=== PATIENT | female | born 1995 | race Caucasian/White ===

== ENCOUNTER 2021-09-21 19:29 | Emergency (ER) | payer SELFPAY ==
[2021-09-21 19:42] VITALS: BP 126/77; PULSE 73; RESP 16; TEMP 36.8; O2SAT 99
--- NOTE | 2021-09-21 19:50 | ED.FEMALEGU ---
HPI - Female Genitourinary General Chief complaint: Urogenital-Female Stated complaint: uti Time Seen by Provider: 09/21/21 19:51 Source: patient and RN notes reviewed Mode of arrival: ambulatory Limitations: no limitations History of Present Illness HPI Narrative: Patient presents today complaining of dysuria, frequency, lower abdominal pressure, low back pain. Symptoms have been present for 1 hour. Denies hematuria. History of frequent UTIs and short urethra . Patient took a dose of Azo 1 hour prior to arrival. No recent antibiotic use. MD elicited complaint: UTI Related Data Allergies Allergy/AdvReac Type Severity Reaction Status Date / Time Sulfa (Sulfonamide Allergy Rash Verified 09/21/21 19:51 Antibiotics) Review of Systems Review of Systems: CONSTITUTIONAL: Denies body aches, fever, chills, or sweats. EYES: Denies visual changes, redness, or discharge. ENT: Denies rhinorrhea, congestion, sore throat, or otalgia. CARDIOVASCULAR: Denies chest pain, palpitations, or edema. RESPIRATORY: Denies cough or dyspnea. GASTROINTESTINAL: Denies abdominal pain, nausea, vomiting, or diarrhea. GENITOURINARY: + Dysuria, frequency, lower abdominal pressure SKIN: Denies rash, itching, or wounds. MUSCULOSKELETAL: Denies joint pain, or myalgia.+ Back pain NEUROLOGIC: Denies headache, numbness, tingling, or weakness. PSYCH: Denies depression or anxiety. PMFSH Comments At time of signature, I have reviewed and agree with nursing past medical, surgical, social and family history unless otherwise noted. Please see nursing chart for further information. There is no relevant family history pertinent to the presenting complaint Exam Narrative: GENERAL: Well-appearing, well-nourished, and in no acute distress. HEAD: Normocephalic, atraumatic. EYES: EOMI. No redness or drainage. Conjunctivae normal. ENT: Mucous membranes pink and moist. NECK: Normal AROM. CHEST: No respiratory distress. Clear to auscultation. HEART: Regular rate and rhythm. No murmur appreciated. Normal peripheral pulses. ABDOMEN: Soft, nondistended, normal active bowel sounds. + Suprapubic tenderness. MUSCULOSKELETAL: No bony tenderness. EXTREMITIES: Normal range of motion. No edema. SKIN: Warm, dry, no rash. Capillary refill normal. Normal skin turgor. NEURO: No focal deficits. Alert and oriented x3. Gait steady. PSYCH: Normal affect. No signs of depression or anxiety. Course Vital Signs Vital signs: Vital Signs Temperature 98.2 F 09/21/21 19:42 Pulse Rate 73 09/21/21 19:42 Respiratory Rate 16 09/21/21 19:42 Blood Pressure 126/77 09/21/21 19:42 Pulse Oximetry 99 09/21/21 19:42 Temperature 98.2 F 09/21/21 19:42 Pulse Rate 73 09/21/21 19:42 Respiratory Rate 16 09/21/21 19:42 Blood Pressure 126/77 09/21/21 19:42 Pulse Oximetry 99 09/21/21 19:42 Reviewed. Pt has been instructed to follow up with her PCP regarding her elevated blood pressure today. MDM - Female Genitourinary Differential Diagnosis Differential diagnosis: Likely urinary tract infection, vaginitis, cystitis and other Lab Data Attestation: I reviewed the patient's lab results. Labs: Urine Glucose Trace Reference Range: Negative Urine Bilirubin 1+ Reference Range: Negative Urine Ketone Negative Reference Range: Negative Urine Specific [place] 1.025 Reference Range:1.001-1.035 Urine Blood Trace Reference Range: Negative * * Urine pH 5.0 Reference Range: 5.0-9.0 Urine Protein
== END 2021-09-21 20:00 | disposition home or self-care (01) ==
PROVIDERS: Emergency Provider Nurse Practitioner
DX: N39.0 Urinary tract infection, site not specified (principal)
CPT/HCPCS: 81003; 87077; 87086; 87088; 87186; 99203; G0463

== ENCOUNTER 2022-09-28 08:55 | Inpatient (IN) | payer OTHER, SELFPAY ==
[2022-09-28] VITALS (7 sets, daily range): BP systolic 103–125; BP diastolic 54–98; PULSE 64–73; RESP 12–18; TEMP 36.4–36.6; O2SAT 98–100
--- NOTE | ~2022-09-28 | US_ITS ---
Pelvic ultrasound. Clinical History: Second trimester , pelvic pain Technique: Realtime transabdominal and transvaginal scanning of the pelvis was performed. Color flow Doppler and Doppler spectral analysis were performed. Findings: The uterus is anteverted, and contains an intrauterine gestation. Placenta located towards the fundus. heart rate is 151 bpm. Neither ovary seen. No adnexal mass seen. There is no evidence of free fluid in the cul de sac. Impression: Live intrauterine gestation. heart rate is 151 bpm. Reviewed, dictated and finalized at location M. BUSINESS PROFESSOR Impression: Live intrauterine gestation. heart rate is 151 bpm.
--- NOTE | 2022-09-28 09:39 | ED.GENADULT ---
HPI - General Adult General Chief complaint: Abdominal Pain Stated complaint: ABD PAIN,N/V/D Time Seen by Provider: 09/28/22 09:10 History of Present Illness HPI narrative: This is a 27-year-old at 24 weeks via in vitro fertilization presenting ED with sudden onset of abdominal pain, nausea vomiting and diarrhea. Patient describes her pain as a diffuse abdominal pain that is burning, nonradiating 10 out 10 and constant the. It is constant and getting worse. She says she has felt pain like this before when she has had bad diarrhea. There are no exacerbating or alleviating factors. Patient had multiple episodes of nausea and vomiting this morning, while vomiting she did have an episode of IR diarrhea where she said she passed a reddish clot. She is relatively sure this was from her rectum and not her vagina. Patient denies chest pain, difficulty breathing, urinary symptoms, vaginal bleeding irritation. She has felt the baby move. Her OBGYN is Teresita Larkin. Her current is complicated by in vitro fertilization and a subchorionic hemorrhage in the 1st trimester. Related Data Allergies Allergy/AdvReac Type Severity Reaction Status Date / Time medroxyprogesterone Allergy Rash Verified 09/28/22 09:40 [From Provera] Sulfa (Sulfonamide Allergy Rash Verified 09/28/22 09:40 Antibiotics) Review of Systems Review of Systems: CONSTITUTIONAL: Denies night sweats. EYES: No eye pain ENT: Denies rhinorrhea CARDIOVASCULAR: Denies palpitations RESPIRATORY: Denies hemoptysis GASTROINTESTINAL: Denies hematemesis GENITOURINARY: Denies hematuria. SKIN: Denies rash MUSCULOSKELETAL: Denies myalgia. NEUROLOGIC: Denies weakness. PSYCHIATRIC: Denies delusions [facility] Past Medical History Medical History Healthy female Social History Social History Social History: Denies alcohol or tobacco, uses marijuana occasionally Exam Narrative: APPEARANCE: No apparent distress. Head: atraumatic. EYES: EOMI, NOSE: Atraumatic NECK: Trachea midline RESPIRATORY: No increased rate of breathing CARDIOVASCULAR: RRR, ABDOMINAL: gravid uterus extending above the umbilicus, tenderness to palpation over the uterus, no guarding or rebound around the rest of the abdomen. Rectal exam revealed no external hemorrhoids or donald blood in the rectal vault. External exam of the vaginal canal the right reveal any bleeding. MUSCULOSKELETAl: No obvious deformities NEURO: Alert. Moving 4/4 extremities SKIN:: Warm, dry. Normal color PSYCHIATRIC: Normal affect Pelvic exam revealed mucopurulent discharge in the vaginal vault. Swabs were taken. There is cervical motion tenderness. Course Vital Signs Vital signs: Vital Signs Temperature 98 F 09/28/22 09:09 Pulse Rate 73 09/28/22 09:09 Respiratory Rate 13 09/28/22 09:09 Blood Pressure 118/98 H 09/28/22 09:09 Pulse Oximetry 100 09/28/22 09:09 Temperature 98 F 09/28/22 09:09 Pulse Rate 67 09/28/22 10:56 Respiratory Rate 15 09/28/22 10:56 Blood Pressure 103/60 09/28/22 10:56 Pulse Oximetry 99 09/28/22 10:56 Medical Decision Making MDM Narrative Medical decision making narrative: This is a 27-year-old woman presenting to ED with abdominal pain, nausea vomiting diarrhea. Differential includes viral syndrome, gastroenteritis but also includes complications of including infection/bleeding. lab work including viral swabs, urinalysis have been obtained. Point of care Ob ultrasound revealed a normal heart rate with no obvious abnormalities. A transvaginal ultrasound has been ordered to evaluate for intrauterine pathology. Patient has been given Reglan Tylenol fluids for symptom control. Lab work was significant for a white blood cell count of 19.8. Urinalysis did not indicate infection. The rest of her lab work
--- NOTE | 2022-09-28 09:39 | PC.NURSE ---
BS 128
[2022-09-28] MEDS: SODIUM CHLORIDE 0.9% IV 1,000 ML 999 ML IV CONT (09:45)
[2022-09-28] MEDS: METOCLOPRAMIDE HCL INJ 10 MG/2 ML VIAL IV PUSH (09:45)
[2022-09-28 09:49] LABS: Glucose Point of Care 123 mg/dl (65-105)
[2022-09-28 09:51] LABS: Basophils Absolute Auto 0.1 K/mm3 (0.0-0.1); Basophils Percent Auto 0.3 % (0.2-1.2); Eosinophils Percent Auto 0.1 % (0-4.4); Hemoglobin 12.8 g/dL (12.0-15.0); Immature Granulocyte Absolute 0.11 K/mm3 (0.00-0.031); Immature Granulocyte Percent A 0.6 % (0-0.5); Lymphocytes Absolute Auto 0.88 K/mm3 (0.9-3.2); Lymphocytes Percent Auto 4.4 % (18.3-44.2); Mean Corpuscular HGB Conc 34.6 g/dl (32-36); Mean Corpuscular Hemoglobin 32.1 pg (26-34); Mean Corpuscular Volume 92.7 fl (80-100); Mean Platelet Volume 9.7 fl (7.4-10.4); Neutrophils Absolute Auto 17.8 K/mm3 (1.3-6.7); Neutrophils Percent Auto 89.6 % (45.5-73.1); Platelet Count Result 240 k/mm3 (150-375); Red Blood Count 3.99 M/mm3 (4.2-5.4); Red Cell Distribution Width 13.3 % (11.5-14.5); White Blood Count 19.8 K/mm3 (4.5-10.0)
[2022-09-28 09:52] LABS: Add Urine Microscopic? YES; Appearance Urine Slightly Cloudy (Clear); Bilirubin Urine Negative (Negative); Blood Urine Negative (Negative); Color Urine Yellow (Yellow); Glucose Urine UA Negative (Negative); Ketones Urine Trace mg/dL (Negative); Leukocyte Esterase Ur Negative LEU/UL (Negative); Nitrate Urine Negative (Negative); Protein Urine Trace mg/dL (Negative); Specific Grav Ur 1.025 (1.001-1.035); Urobilinogen Urine 0.2 mg/dL (<2.0)
--- NOTE | 2022-09-28 09:58 | PC.NURSE ---
Pt to U/S via stretcher at this time.
[2022-09-28 10:00] LABS: Bacteria Urine Trace /hpf; Mucus Urine Heavy /lpf; RBC Urine 0-2 /hpf (0-2); Squamous Epithelial Cell Urine Occasional /hpf (Few)
[2022-09-28 10:01] LABS: Alanine Aminotransferase 20 U/L (6-35); Albumin Level 4.2 g/dL (3.5-5.1); Alkaline Phosphatase 78 U/L (38-126); Anion Gap 12 mmol/L (8-16); Aspartate Amino Transferase 22 U/L (14-36); Bilirubin,Total 0.4 mg/dL (0.2-1.3); Blood Urea Nitrogen 10 mg/dL (7-17); Carbon Dioxide 19 mmol/L (22-30); Chloride 107 mmol/L (98-107); Estimated CRCL calculation 138 ml/min; Estimated Glomerular Filt Rate > 60; Glucose 118 mg/dL (65-110); Lipase 138 U/L (23-300); Magnesium 1.7 mg/dL (1.6-2.3); Potassium 3.9 mmol/L (3.4-5.0); Sodium 138 mmol/L (137-145)
[2022-09-28 10:05] LABS: Partial Thromboplastin Time 24.7 SECONDS (22.3-36.8); Prothrombin Time 12.9 Seconds (11.1-14.7)
[2022-09-28 10:36] LABS: Influenza A QL RT-PCR Negative (Negative); Influenza B QL RT-PCR Negative (Negative); RSV RNA, RT-PCR Negative (Negative); SARS-CoV-2 RNA PCR Negative
[2022-09-28] MEDS: HYDROmorphone HCL INJ (*CRX) 1 MG/ML SYR 0.5 MG IV PUSH (13:45)
--- NOTE | 2022-09-28 16:05 | ADMGEN ---
This patient, Dyan Do, was admitted to [facility] Surg Room 300-01. Patient/family oriented to hospital policies and general routines including ID bracelet, bed and alarms, visiting hours, pain management, procedures, bathroom and other care routines, personal items, smoking policy, room service/diet, and visiting hours. Information on how to activate the Rapid Response Team has been discussed. Patient/Family are encouraged to report perceived risks to care and to ask questions if they do not understand what they are told or what they should do.
[2022-09-28] MEDS: ONDANSETRON INJ 4 MG/2 ML VIAL 8 MG IV PUSH (17:52)
[2022-09-28] MEDS: HYDROmorphone HCL INJ (*CRX) 1 MG/ML SYR IV PUSH (17:53)
[2022-09-28] MEDS: DEXTROSE 5%/LACTATED RINGERS 1,000 ML 125 ML IV CONT (17:53)
--- NOTE | 2022-09-28 18:55 | PM.IMHP ---
H&P: HPI History of Present Illness Date/Time: 09/28/22 18:55 Chief Complaint: Rectal bleeding Narrative: this patient is a 27-year-old female 1 at 24 weeks gestation proximally with bloody stools and donald red blood per rectum. She has some epigastric pain. She reports good movement. There is no vaginal bleeding. She has no watery vaginal discharge. There is no lower extremity edema. Review of Systems Review of Systems: All systems reviewed & are unremarkable except as noted in HPI and below Constitutional: Constitutional: Denies chills, Denies fatigue, Denies fever(s) and Denies weakness Eyes: Eyes: Denies blurry vision, Denies change in vision, Denies loss of peripheral vision, Denies loss of vision, Denies other visual disturbances and Denies eye pain ENT: Denies vertigo, Denies dizziness, Denies hearing loss, Denies mouth pain, Denies nasal obstruction, Denies neck mass and Denies neck pain Cardiovascular: Cardiovascular: Denies chest pain, Denies diaphoresis, Denies syncope, Denies leg edema and Denies dyspnea Respiratory: Respiratory: Denies chest congestion, Denies cough, Denies hemoptysis, Denies dyspnea and Denies wheezing Gastrointestinal: Gastrointestinal: Denies abdominal pain, Denies constipation, Denies diarrhea, Denies nausea and Denies vomiting Genitourinary: Genitourinary: Denies hematuria, Denies change in libido, Denies nocturia, Denies genital lesions, Denies flank pain and Denies urinary urgency Musculoskeletal: Musculoskeletal: Denies abnormal gait, Denies back pain, Denies myalgias, Denies arthralgias, Denies joint swelling, Denies muscle weakness and Denies neck pain Integumentary/Breasts: Skin/Breast: Denies swelling, Denies breast pain, Denies breast mass, Denies dry skin, Denies nipple discharge, Denies unusual bruising and Denies jaundice Neurologic: Denies Neuro-related abnormal movements, Denies Abnormal speech present, Denies abnormal gait, Denies behavioral changes, Denies confusion, Denies vertigo, Denies dizziness, Denies syncope, Denies loss of vision, Denies memory loss, Denies convulsions and Denies weakness Psychiatric: Psychiatric: Denies abnormal sleep pattern, Denies behavioral changes, Denies change in libido, Denies confusion, Denies depression, Denies anhedonia and Denies memory loss Endocrine: Endocrine: Reports no additional endocrine complaints, Denies change in libido and Denies fatigue Hematologic/Lymphatic: Hematologic/Lymphatic: Reports no additional hematologic/lymphatic complaints Allergic/Immunologic: Allergic/Immunologic: Reports no additional allergic/immunologic complaints and Denies wheezing PMFSH Past Medical History Medical History Healthy female Social History Social History Social History: Denies alcohol or tobacco, uses marijuana occasionally Smoking status: Former smoker Alcohol intake: former Substance use type: marijuana Lack of Transportation: No Lack of Food: Never True Current Housing: I Have Housing Concerned About Future Housing: No Difficulty Paying Gas/Electric Bills: No Difficulty Paying for Meds: No Currently Unemployed: No Education: Bachelor's Degree Difficulty w/ Childcare or Family Care: No Spiritual care concerns: No Meds Home Medications and Allergies Home Medications Medication Instructions Recorded Confirmed Type nitrofurantoin 100 mg PO Q12H 7 days #14 caps 09/21/21 Rx monohydrate/macrocrystals 100 mg capsule (Macrobid) Allergies Allergy/AdvReac Type Severity Reaction Status Date / Time medroxyprogesterone Allergy Rash Verified 09/28/22 09:40 [From Provera] Sulfa (Sulfonamide Allergy Rash Verified 09/28/22 09:40 Antibiotics) Vital Signs Vital Signs - 24 hr 09/28/22 09:09 09/28/22 10:56 09/28/22 12:48 Temperature 98 F Pulse Rate 73 6
[2022-09-28] MEDS: metroNIDAZOLE 500 MG/ISO 100ML 500 MG/100 ML BAG 100 MG IVPB (20:21)
[2022-09-28] MEDS: HYDROmorphone HCL INJ (*CRX) 1 MG/ML SYR 2 MG IV PUSH (21:12)
[2022-09-29] VITALS (9 sets, daily range): BP systolic 87–104; BP diastolic 48–58; PULSE 60–88; RESP 13–27; TEMP 36.1–36.8; O2SAT 95–100
[2022-09-29] MEDS: HYDROmorphone HCL INJ (*CRX) 1 MG/ML SYR 2 MG IV PUSH ×7 (04:16→23:04)
[2022-09-29] MEDS: DEXTROSE 5%/LACTATED RINGERS 1,000 ML 125 ML IV CONT ×2 (04:19→21:45)
[2022-09-29] MEDS: ONDANSETRON INJ 4 MG/2 ML VIAL 8 MG IV PUSH (11:45)
[2022-09-29] MEDS: metroNIDAZOLE 500 MG/ISO 100ML 500 MG/100 ML BAG 100 MG IVPB ×2 (11:49→20:48)
--- NOTE | 2022-09-29 13:01 | P.PNAN_ITS ---
Anes - Initial Pre Proc Eval Procedure: Operation Date: 09/29/22 14:15 Proposed Procedures p Flexible Sigmoidoscopy - Kavin Infante MD Date/Time: 09/29/22 13:01 Surgeon: Javier Resendez MD Pre Op Diagnosis: pid Patient Data Age: 27 Gender: F Height: 1.7 m Weight: 79.54 kg Last Vital Signs Temp 36.1 C L 09/29/22 06:00 Pulse 60 09/29/22 06:00 Resp 16 09/29/22 06:00 BP 99/50 L 09/29/22 06:00 Pulse Ox 98 09/29/22 06:00 O2 Del Method Room Air 09/29/22 08:40 Allergies Allergy/AdvReac Type Severity Reaction Status Date / Time medroxyprogesterone Allergy Rash Verified 09/28/22 19:21 [From Provera] Sulfa (Sulfonamide Allergy Rash Verified 09/28/22 19:21 Antibiotics) Home Medications Medication Instructions Recorded Confirmed Type No Home Medications 09/29/22 09/29/22 History Results Review: All pre-operative results and documents have been reviewed as part of the pre- operative evaluation. [facility]LY [facility] Past Medical History Medical History Healthy female Social History Social History Social History: Denies alcohol or tobacco, uses marijuana occasionally Smoking status: Former smoker Alcohol intake: former Substance use type: marijuana Lack of Transportation: No Lack of Food: Never True Current Housing: I Have Housing Concerned About Future Housing: No Difficulty Paying Gas/Electric Bills: No Difficulty Paying for Meds: No Currently Unemployed: No Education: Bachelor's Degree Difficulty w/ Childcare or Family Care: No Spiritual care concerns: No Anes - Eval Final PreProcedure Day of Procedure 09/29/22 13:01 Patient weight: overweight Heart: regular rate and rhythm Lungs: clear to auscultation Airway: Mallampati scale class II Neurological: alert and oriented Last oral intake: >/= 8 hours ASA classification: II Emergent: no Anesthetic plan: proceed Anesthesia type and monitoring: general GIVS and standard monitoring Other findings: patient - doppler before and after procedure Results Review: All pre-operative results and documents have been reviewed as part of the pre- operative evaluation. Informed Consent: The patient's anesthetic plan and its attendant risks and benefits were discussed with the patient/family/POA. Questions were solicited and answers provided to the satisfaction of the patient/family/POA.
--- NOTE | 2022-09-29 13:10 | WPDGICN ---
Assessment and Plan Assessment and plan (1) Rectal bleeding: Code(s): K62.5 - Hemorrhage of anus and rectum Status: Acute Assessment and Plan: Patient with bright red blood per rectum. Her hemoglobin is normal. She does have elevated white count. Suspect bleeding is from hemorrhoids. Other etiology cannot be excluded. Plan is for flexible sigmoidoscopy to determine if this is hemorrhoidal or colitis. I discussed preparation for procedure with solid waste engineer, Dr. Resendez. Plan is for a Fleet's enema prior to flex sig with no sedation. (2) Acute pelvic inflammatory disease (PID): Code(s): N73.0 - Acute parametritis and pelvic cellulitis Status: Acute Assessment and Plan: Patient with abdominal pain suspected to be PID. Currently followed by gynecology service. (3) conceived through in vitro fertilization: Code(s): O09.819 - Supervision of resulting from assisted reproductive technology, unspecified trimester Status: Acute Assessment and Plan: Patient is . Gynecology following. She appears (4) Leukocytosis: Code(s): D72.829 - Elevated white blood cell count, unspecified Status: Acute Assessment and Plan: Patient has elevated white count. Etiology unclear likely related to PID. GI Consult Note Consult date/time: 09/29/22 13:10 Reason for consult: Rectal bleeding HPI: Dyan Do is a 27 year old female I am asked to see at the request of Dr. Resendez for rectal bleeding. Patient currently is 24 weeks after in vitro fertilization. She did well until yesterday morning when she passed several small amounts of bright red blood per rectum. Patient also developed rather significant diffuse abdominal discomfort. She states she has had abdominal pain previously with poor bowel movements. After being seen in the emergency room was suspected possibly having PID. I have been consulted because of rectal bleeding. Patient denies prior episodes of bleeding. Review of Systems Review of Systems: Review of systems noncontributory. [facility]LY [facility] Past Medical History Medical History Healthy female Social History Social History Social History: Denies alcohol or tobacco, uses marijuana occasionally Smoking status: Former smoker Alcohol intake: former Substance use type: marijuana Lack of Transportation: No Lack of Food: Never True Current Housing: I Have Housing Concerned About Future Housing: No Difficulty Paying Gas/Electric Bills: No Difficulty Paying for Meds: No Currently Unemployed: No Education: Bachelor's Degree Difficulty w/ Childcare or Family Care: No Spiritual care concerns: No Meds Home Medications and Allergies Home Medications Medication Instructions Recorded Confirmed Type No Home Medications 09/29/22 09/29/22 History Allergies Allergy/AdvReac Type Severity Reaction Status Date / Time medroxyprogesterone Allergy Rash Verified 09/28/22 19:21 [From Provera] Sulfa (Sulfonamide Allergy Rash Verified 09/28/22 19:21 Antibiotics) Vital Signs Vital Signs - 24 hr 09/28/22 15:38 09/28/22 16:27 09/28/22 18:45 Temperature 97.6 F Pulse Rate 68 73 Respiratory Rate 15 12 Blood Pressure 106/63 125/71 Pulse Oximetry 99 98 Oxygen Delivery Room Air 09/28/22 22:00 09/28/22 20:00 09/28/22 22:38 Temperature 97.7 F Pulse Rate 67 Respiratory Rate 18 Blood Pressure 118/71 Pulse Oximetry 98 98 Oxygen Delivery Room Air Room Air 09/29/22 06:00 09/29/22 08:40 Temperature 96.9 F L Pulse Rate 60 Respiratory Rate 16 Blood Pressure 99/50 L Pulse Oximetry 98 Oxygen Delivery Room Air Exam Narrative: Physical exam reveals patient be alert. Vital signs stable. HEENT exam reveals no icterus. Lungs are cl
[2022-09-29] MEDS: LACTATED RINGERS 1,000 ML 150 ML IV CONT (13:54)
--- NOTE | 2022-09-29 14:45 | SUR.OPER ---
MD Infante speaking to at bedside. present.
[2022-09-29 16:03] LABS: Basophils Percent Auto 0.2 % (0.2-1.2); Eosinophils Absolute Auto 0.1 K/mm3 (0-0.3); Eosinophils Percent Auto 0.9 % (0-4.4); Hematocrit 34.9 % (37.0-47.0); Hemoglobin 11.5 g/dL (12.0-15.0); Immature Granulocyte Absolute 0.09 K/mm3 (0.00-0.031); Immature Granulocyte Percent A 0.7 % (0-0.5); Lymphocytes Absolute Auto 2.79 K/mm3 (0.9-3.2); Lymphocytes Percent Auto 22.6 % (18.3-44.2); Mean Corpuscular Hemoglobin 31.9 pg (26-34); Mean Corpuscular Volume 96.9 fl (80-100); Mean Platelet Volume 9.7 fl (7.4-10.4); Monocytes Absolute Auto 0.8 K/mm3 (0.1-0.6); Monocytes Percent Auto 6.2 % (2.6-8.5); Neutrophils Absolute Auto 8.6 K/mm3 (1.3-6.7); Neutrophils Percent Auto 69.4 % (45.5-73.1); Platelet Count Result 231 k/mm3 (150-375); Red Cell Distribution Width 13.6 % (11.5-14.5); White Blood Count 12.3 K/mm3 (4.5-10.0)
[2022-09-29] MEDS: METOCLOPRAMIDE HCL INJ 10 MG/2 ML VIAL IV PUSH (20:10)
--- NOTE | 2022-09-29 20:34 | P.PNOB_ITS ---
OB - PN: Subj Subjective Date/time seen: 09/29/22 20:34 Flexible sigmoidoscopy was performed today. Lesions re presenting ulcerative colitis were observed. The patient has been placed on appropriate antibiotics. OB - PN: Obj Data Labs 09/29/22 15:32 09/28/22 09:41 Labs: Laboratory Results - last 24 hr 09/29/22 15:32 WBC 12.3 H RBC 3.60 L Hgb 11.5 L Hct 34.9 L MCV 96.9 MCH 31.9 MCHC 33.0 RDW 13.6 Plt Count 231 MPV 9.7 Immature Gran % (Auto) 0.7 H Neut % (Auto) 69.4 Lymph % (Auto) 22.6 [place] % (Auto) 6.2 Eos % (Auto) 0.9 Baso % (Auto) 0.2 Lymph # (Auto) 2.79 [place] # (Auto) 0.8 H Eos # (Auto) 0.1 Baso # (Auto) 0.0 Abs Immat Gran (auto) 0.09 H Absolute Neuts (auto) 8.6 H Absolute Nucleated RBC 0.0 Nucleated RBC % 0.0 OB - PN A/P Assessment and Plan (1) Colitis: Code(s): K52.9 - Noninfective gastroenteritis and colitis, unspecified Status: Acute (2) Second trimester fetus: Code(s): Z34.92 - Encounter for supervision of normal , unspecified, second trimester Status: Acute Plan continuing supportive care for nausea vomiting colitis, antibiotics have been added by GI. , Doppler baby was performed today. Continue observation. Time Spent With Patient Time: Total time spent is greater than 50% in coordination of care (as documented) at patient's floor/unit and/or counseling patient: Exam Const: General: cooperative, healthy appearing, comfortable and no acute distress; No confusion Orientation/consciousness: oriented to person, oriented to place, oriented to time and No confusion HENMT: Head: normal to inspection Ears: external ears normal Face/Nose/Sinus: Normal external nose present and normal facial exam Face and sinus: normal facial exam Eyes: General: appearance normal, both eyes and all related structures Neck: Neck: normal visual inspection, trachea midline and supple Resp: Auscultation: clear to auscultation bilaterally, no crackles, no rales, no rhonchi and no wheezes Cardio: Rate: regular rate Rhythm: regular rhythm Heart sounds: no click, no murmurs and no rubs GI: GI Palp: No abdominal tenderness, No Soft to palpation, No Tenderness to palpation present (GI) and No Palpable mass present Auscultation: normal bowel sounds Skin: General skin exam: normal color and no rashes or lesions noted Neuro: General: oriented to person, oriented to place, oriented to time and No confusion Speech: No Abnormal speech present Extrem: General: normal to inspection, no joint enlargement, no clubbing, cyanosis or edema, no pedal edema and no calf tenderness Psych: Appearance: grossly normal Mental Status: mental status grossly normal Speech and movement: Normal speech and movement present
[2022-09-29 21:54] LABS: Toxigenic C. Diff NEGATIVE (NEGATIVE)
[2022-09-30] MEDS: METOCLOPRAMIDE HCL INJ 10 MG/2 ML VIAL IV PUSH (00:18)
--- NOTE | 2022-09-30 00:41 | PC.NURSE ---
stool sample sent to lab this shift 09/29/22
[2022-09-30] MEDS: DEXTROSE 5%/LACTATED RINGERS 1,000 ML 125 ML IV CONT (05:52)
[2022-09-30 06:00] VITALS: BP 96/52; PULSE 61; RESP 17; TEMP 36.6; O2SAT 95
[2022-09-30 06:04] VITALS: BP 96/52
--- NOTE | 2022-09-30 08:26 | WPDGIPROGNO ---
Progress Note: A&P Assessment and Plan (1) Colitis: Code(s): K52.9 - Noninfective gastroenteritis and colitis, unspecified Status: Acute Assessment and Plan: Patient found to have segmental colitis on flex sig yesterday. This is most consistent with infectious colitis although ischemic colitis cannot be excluded. Unlikely to be inflammatory bowel disease. Plan to continue antibiotics. Stool cultures have been ordered but no significant stool output her diarrhea to account for this. Change to oral antibiotics as diet as tolerated. Try to advance to a regular diet today. I would recommend 7-10 day course of oral antibiotics after discharge. Follow-up in GI office if symptoms recur after discharge. (2) Second trimester fetus: Code(s): Z34.92 - Encounter for supervision of normal , unspecified, second trimester Status: Acute Subjective Date/time seen: 09/30/22 08:26 Patient feels much better today. Pain is lessened to a great degree. Anxious to try something more than water. Tolerating water without difficulty. No additional significant bleeding noted. Review of Systems Review of Systems: Review of systems noncontributory. Exam Narrative: Physical exam reveals patient be alert. Afebrile. Vital signs stable. HEENT exam is unremarkable. Patient anicteric. Lungs are clear. Heart without murmur. Abdomen with gravid uterus. Nose significant tenderness present. Objective Data Vital Signs Vital Signs: Vital Signs - 24 hr 09/29/22 08:40 09/29/22 14:06 09/29/22 14:21 Temperature 98.2 F Pulse Rate 65 88 Respiratory Rate 20 16 Blood Pressure 98/51 L 104/56 L Pulse Oximetry 97 100 Oxygen Delivery Room Air Room Air Room Air 09/29/22 14:26 09/29/22 14:31 09/29/22 14:40 Temperature Pulse Rate 66 71 68 Respiratory Rate 24 H 23 H 13 Blood Pressure 92/48 L 87/54 L 90/55 L Pulse Oximetry 100 100 95 Oxygen Delivery Room Air Room Air Room Air 09/29/22 14:50 09/29/22 20:00 09/29/22 22:00 Temperature 97.2 F L Pulse Rate 72 62 Respiratory Rate 27 H 17 Blood Pressure 96/58 L 99/56 L Pulse Oximetry 96 96 98 Oxygen Delivery Room Air Room Air 09/30/22 06:04 09/30/22 06:00 Temperature 97.8 F Pulse Rate 61 Respiratory Rate 17 Blood Pressure 96/52 L 96/52 L Pulse Oximetry 95 Oxygen Delivery Intake/Output Intake/Output: Intake & Output 09/27/22 09/28/22 09/29/22 09/30/22 23:59 23:59 23:59 23:59 Intake Total 1550 2850 1000 Balance 1550 2850 1000 Meds/Results Medications: Active Medications Generic Name Dose Route Start Last Admin Trade Name Freq PRN Reason Stop Dose Admin Hydromorphone HCl 2 mg 09/28/22 20:00 09/29/22 23:04 Hydromorphone Hcl Inj (*Crx) 1 Mg/Ml Syr IV PUSH 2 mg Q2H PRN Administration Pain Rated 7-10 Dextrose/Lactated Ringer's 1,000 mls @ 125 mls/hr 09/28/22 17:10 09/30/22 05:52 Dextrose 5%/Lactated Ringers IV CONT 125 mls/hr .Q8H SATISH Administration Ceftriaxone Sodium/Dextrose 1 gm in 50 mls @ 100 mls/hr 09/28/22 20:00 09/29/22 20:40 Rocephin 1 Gm/D5w 50 Ml IVPB Infused Q24H SATISH Infusion Metronidazole 500 mg in 100 mls @ 100 mls/hr 09/28/22 19:19 09/29/22 21:52 Flagyl 500 Mg/Iso Soln 100 Ml IVPB Infused Q12HR SATISH Infusion Metoclopramide HCl 10 mg 09/29/22 19:00 09/30/22 05:52 Metoclopramide Hcl Inj 10 Mg/2 Ml Vial IV PUSH Not Given Q6HR SATISH Ondansetron HCl 8 mg 09/28/22 17:06 09/29/22 11:45 Ondansetron Inj 4 Mg/2 Ml Vial IV PUSH 8 mg Q8H PRN Administration Nausea And Vomiting Radiology Results: ITS Impressions Obstetrics Ultrasound 09/28/22 10:19 Impression: Live intrauterine gestation. heart rate is 151 bpm. Labs Labs: Laboratory Results - last 24 hr 09/29/22 09/29/22 15:32 20:56 WBC 12.3 H RBC 3.60 L Hgb 11.5 L Hct 34.9 L MCV 96.9 MCH 31.9 MCHC 33.0 RDW 13.6 Plt Count
[2022-09-30] MEDS: metroNIDAZOLE 500 MG/ISO 100ML 500 MG/100 ML BAG 100 MG IVPB (09:20)
--- NOTE | 2022-09-30 13:33 | PM.OBPNVD ---
OB - PN: Subj Subjective Date/time seen: 09/30/22 13:33 symptoms much improved, diarrhea slowing. Denies fevers/chills. No nausea, vomiting. Good movement OB - PN: Obj Data Labs 09/29/22 15:32 09/28/22 09:41 Labs: Laboratory Results - last 24 hr 09/29/22 09/29/22 15:32 20:56 WBC 12.3 H RBC 3.60 L Hgb 11.5 L Hct 34.9 L MCV 96.9 MCH 31.9 MCHC 33.0 RDW 13.6 Plt Count 231 MPV 9.7 Immature Gran % (Auto) 0.7 H Neut % (Auto) 69.4 Lymph % (Auto) 22.6 [place] % (Auto) 6.2 Eos % (Auto) 0.9 Baso % (Auto) 0.2 Lymph # (Auto) 2.79 [place] # (Auto) 0.8 H Eos # (Auto) 0.1 Baso # (Auto) 0.0 Abs Immat Gran (auto) 0.09 H Absolute Neuts (auto) 8.6 H Absolute Nucleated RBC 0.0 Nucleated RBC % 0.0 C. difficile (PCR) Negative OB - PN A/P Assessment and Plan (1) Second trimester fetus: Code(s): Z34.92 - Encounter for supervision of normal , unspecified, second trimester Status: Acute (2) Colitis: Code(s): K52.9 - Noninfective gastroenteritis and colitis, unspecified Status: Acute (3) Rectal bleeding: Code(s): K62.5 - Hemorrhage of anus and rectum Status: Acute Plan 27-year-old female with 25 weeks gestation and colitis. Much improved today, discharged home, Cipro and Flagyl to be taken for a week. To follow up in GI and to see Ob for routine care. Time Spent With Patient Time: Total time spent is greater than 50% in coordination of care (as documented) at patient's floor/unit and/or counseling patient: Review of Systems Review of Systems: All systems reviewed & are unremarkable except as noted in HPI and below Constitutional: Constitutional: Denies chills, Denies fatigue, Denies fever(s) and Denies weakness Eyes: Eyes: Denies blurry vision, Denies change in vision, Denies loss of peripheral vision, Denies loss of vision, Denies other visual disturbances and Denies eye pain ENT: Denies vertigo, Denies dizziness, Denies hearing loss, Denies mouth pain, Denies nasal obstruction, Denies neck mass and Denies neck pain Cardiovascular: Cardiovascular: Denies chest pain, Denies diaphoresis, Denies syncope, Denies leg edema and Denies dyspnea Respiratory: Respiratory: Denies chest congestion, Denies cough, Denies hemoptysis, Denies dyspnea and Denies wheezing Gastrointestinal: Gastrointestinal: Denies abdominal pain, Denies constipation, Denies diarrhea, Denies nausea and Denies vomiting Genitourinary: Genitourinary: Denies hematuria, Denies change in libido, Denies nocturia, Denies genital lesions, Denies flank pain and Denies urinary urgency Musculoskeletal: Musculoskeletal: Denies abnormal gait, Denies back pain, Denies myalgias, Denies arthralgias, Denies joint swelling, Denies muscle weakness and Denies neck pain Integumentary/Breasts: Skin/Breast: Denies swelling, Denies breast pain, Denies breast mass, Denies dry skin, Denies nipple discharge, Denies unusual bruising and Denies jaundice Neurologic: Denies Neuro-related abnormal movements, Denies Abnormal speech present, Denies abnormal gait, Denies behavioral changes, Denies confusion, Denies vertigo, Denies dizziness, Denies syncope, Denies loss of vision, Denies memory loss, Denies convulsions and Denies weakness Psychiatric: Psychiatric: Denies abnormal sleep pattern, Denies behavioral changes, Denies change in libido, Denies confusion, Denies depression, Denies anhedonia and Denies memory loss Endocrine: Endocrine: Reports no additional endocrine complaints, Denies change in libido and Denies fatigue Hematologic/Lymphatic: Hematologic/Lymphatic: Reports no additional hematologic/lymphatic complaints Allergic/Immunologic: Allergic/Immunologic: Reports no additional allergic/immunologic complaints and Denies wheezing Exam Const: General: cooperative, healthy appearing, comfortable and no acute distress; No confusion Orientation/conscious
--- NOTE | 2022-10-18 20:51 | PM.DS ---
DS: Admitting Diagnosis Discharge Date 09/30/22 Admitting Diagnosis pelvic inflammatory disease DS: Summary Hospital Course Hospital Course: 27-year-old female who was admitted for pelvic inflammatory disease, came to the emergency department, was admitted for IV antibiotics. After 2 days of IV antibiotics. She had improved markedly. Her pain was diminished. Her white count was down. she remained afebrile. She was discharged home on oral antibiotics. She had follow-up within a week. Time Spent with Patient Time attestation: Total time spent providing and/or coordinating discharge services: DS: Data Data Completed and Pending Completed studies during hospitalization: Pending at discharge 09/29/22 14:27 Surgical [PTH] Routine Discharge Plan Discharge Consulting providers: Koby Ashby ; Kavin Infante Discharging Clinician: Javier Resendez Patient Disposition: Home, Self-Care Activity: pelvic rest Diet: regular Patient Instructions: Antibiotic Form Stand Alone Forms: General Discharge Information Follow-up/Referrals: Javier Resendez MD [Physician] - Discharge Medications: New ciprofloxacin HCl 500 mg tablet 500 mg PO Q12H 7 Days Qty: 14 0RF metronidazole 500 mg tablet 500 mg PO Q8H Qty: 21 0RF Date of admission: 09/28/22 10:58 Primary Care Provider: Aniya,Yarelis Admitting Provider: Javier Resendez Attending physician on admission: Javier Resendez Condition: Stable
== END 2022-09-30 13:51 | disposition home or self-care (01) | DRG 832 ==
LOC: ANHED 11:03 → ANHLDR 13:08 → ANH3MEDSUR 16:13
PROVIDERS: Internal Medicine Gastroenterology; Admitting Provider Obstetrics & Gynecology; Emergency Provider Emergency Medicine; PCP Internal Medicine Geriatric Medicine; Visit Provider Obstetrics & Gynecology
PROC: 0DJD8ZZ Inspection of Lower Intestinal Tract, Via Natural or Artificial Opening Endoscopic (ICD-10-PCS; CPT 45330; principal; 2022-09-29 14:15)
DX: O99.612 Diseases of the digestive system complicating pregnancy, second trimester (principal); K62.5 Hemorrhage of anus and rectum; K52.9 Noninfective gastroenteritis and colitis, unspecified; Z3A.24 24 weeks gestation of pregnancy; D72.829 Elevated white blood cell count, unspecified; O09.812 Supervision of pregnancy resulting from assisted reproductive technology, second trimester
CPT/HCPCS: 36415; 76815; 80053; 81001; 82948; 83690; 83735; 85025; 85610; 85730; 87045; 87070; 87269; 87272; 87427; 87491; 87493; 87591; 87637; 87808; 88305; 89055; 96365; 96375; 99285; J0131; J0696; J1170; J2405; J2765; J7030; J7120; J7121

== ENCOUNTER 2022-10-28 09:20 | Observation (INO) | payer OTHER, SELFPAY ==
[2022-10-28] VITALS (11 sets, daily range): BP systolic 97–119; BP diastolic 60–81; PULSE 79–108; TEMP 36.9; O2SAT 96–99; BMI 27.9
[2022-10-28] MEDS: DEXTROSE 5%/LACTATED RINGERS 1,000 ML 999 ML IV CONT (09:55)
[2022-10-28] MEDS: FAMOTIDINE 20 MG/2 ML VIAL IV PUSH (10:01)
[2022-10-28] MEDS: ONDANSETRON INJ 4 MG/2 ML VIAL IV PUSH (10:01)
--- NOTE | 2022-10-28 10:20 | LDADM ---
This patient, Dyan Do, was admitted to OB Post 116 on 10/28/22 at 09:20. Plans for labor, pain management and were discussed with patient. Patient/family oriented to hospital policies and general routines including ID bracelet, bed and alarms, visiting hours, pain management, procedures, bathroom and other care routines, personal items, smoking policy, room service/diet and guest tray routines, infant security routines, and visiting hours. Patient/Family are encouraged to report perceived risks to care and to ask questions if they do not understand what they are told or what they should do. See OBIX for further documentation.
[2022-10-28 11:17] LABS: Appearance Urine Slightly Cloudy (Clear); Bilirubin Urine Negative (Negative); Blood Urine Negative (Negative); Color Urine Yellow (Yellow); Glucose Urine UA Negative (Negative); Ketones Urine 2+ mg/dL (Negative); Leukocyte Esterase Ur Negative LEU/UL (NEGATIVE); Nitrate Urine Negative (Negative); Protein Urine 2+ mg/dL (Negative); Specific Grav Ur 1.025 (1.001-1.035); Urobilinogen Urine 0.2 mg/dL (<2.0)
[2022-10-28 11:22] LABS: Bacteria Urine Trace /hpf; Mucus Urine Moderate /lpf; Squamous Epithelial Cell Urine Moderate /hpf (Few); WBC Urine 0-3 /hpf (0-3)
[2022-10-28 11:23] LABS: Add Urine Microscopic? YES
--- NOTE | 2022-10-28 11:28 | PC.NURSE ---
Spoke with Dr. Larkin regarding patient status. Patient came in with complaints of nausea, vomiting, and diarrhea since 219910/27/22. Patient has been unable to keep any food/water down without vomiting since last night. Patient has had IV fluids and antiemetics. She is currently trying to eat saltines and is asking for Imodium. Verbal orders given from Dr. Larkin for PO Imodium and discharge when patient feels well enough to go home. Orders for patient to go home with 4mg Zofran ODT TID PRN. Patient agrees with plan of care and has no questions at this time.
[2022-10-28] MEDS: LOPERAMIDE HCL 2 MG CAPSULE PO (11:39)
--- NOTE | 2022-11-01 02:34 | P.PNOB_ITS ---
OB - Triage/Final Diagnosis Visit Information Comments/Additional reasons for admission: I have assessed the risk for this patient, Dyan Do, and determined that she would benefit from observation care. Evaluation Laboratory results: Laboratory Tests 10/28/22 09:36 Urine Color Yellow Urine Appearance Slightly cloudy Urine pH 7.0 Ur Specific [place] 1.025 Urine Protein 2+ H Urine Glucose (UA) Negative Urine Ketones 2+ H Ur Blood (Man) Negative Urine Nitrate Negative Urine Bilirubin Negative Urine Urobilinogen 0.2 Ur Leukocyte Esterase Negative Urine RBC 3-5 H Urine WBC 0-3 Ur Squamous Epith Cells Moderate H Urine Bacteria Trace Urine Mucus Moderate H Final Diagnosis (1) Viral gastroenteritis: Code(s): A08.4 - Viral intestinal infection, unspecified Status: Acute
== END 2022-10-28 13:05 | disposition home or self-care (01) ==
PROVIDERS: Admitting Provider Obstetrics & Gynecology; PCP Internal Medicine Geriatric Medicine; Referring Provider Obstetrics & Gynecology; Visit Provider Obstetrics & Gynecology
DX: O99.891 Other specified diseases and conditions complicating pregnancy (principal); A08.4 Viral intestinal infection, unspecified
CPT/HCPCS: 59025; 81001; 96374; 96375; A9270; G0378; G0379; J2405; J7121

== ENCOUNTER 2022-12-13 14:21 | Observation (INO) | payer OTHER, SELFPAY ==
[2022-12-13 14:40] VITALS: BP 111/76; PULSE 91; RESP 16; TEMP 36.6
[2022-12-13 14:43] VITALS: BMI 29.2
--- NOTE | 2022-12-13 14:45 | OBADM ---
This patient, Dyan Do, admitted to the OB room 116 for observation. Patient/family oriented to hospital policies and general routines including ID bracelet, bed and alarms, visiting hours, pain management, procedures, bathroom and other care routines, personal items, smoking policy, room service/diet, and visiting hours. Patient/Family are encouraged to report perceived risks to care and to ask questions if they do not understand what they are told or what they should do.
[2022-12-13 15:00] VITALS: BP 121/78; PULSE 82
[2022-12-13 15:30] VITALS: BP 120/79; PULSE 74
[2022-12-13 15:39] LABS: Appearance Urine Clear (Clear); Bacteria Urine 1+ /hpf; Bilirubin Urine Negative (Negative); Blood Urine Negative (Negative); Color Urine Yellow (Yellow); Glucose Urine UA Negative (Negative); Ketones Urine Negative (Negative); Leukocyte Esterase Ur 1+ LEU/UL (Negative); Nitrate Urine Negative (Negative); Non Pathogenic Casts 0-2; Protein Urine Negative (Negative); RBC Urine 0-2 /hpf (0-2); Specific Grav Ur 1.017 (1.001-1.035); Squamous Epithelial Cell Urine Few /hpf (Few); Urobilinogen Urine 0.2 mg/dL (<2.0)
[2022-12-13 15:44] LABS: Add Urine Microscopic? YES
[2022-12-13 16:00] VITALS: BP 119/72; PULSE 77; RESP 18; TEMP 36.3
--- NOTE | 2022-12-14 16:06 | PM.OBTRLD ---
OB - Triage/Final Diagnosis Visit Information Date of evaluation: 12/13/22 Reason for evaluation: threatened labor Comments/Additional reasons for admission: I have assessed the risk for this patient, Dyan Do, and determined that she would benefit from observation care. Evaluation Laboratory results: Laboratory Tests 12/13/22 15:20 Urine Color Yellow Urine Appearance Clear Urine pH 7.0 Ur Specific [place] 1.017 Urine Protein Negative Urine Glucose (UA) Negative Urine Ketones Negative Ur Blood (Man) Negative Urine Nitrate Negative Urine Bilirubin Negative Urine Urobilinogen 0.2 Leukocyte Esterase Rfl 1+ H Urine RBC 0-2 Urine WBC 6-10 H Ur Squamous Epith Cells Few Urine Bacteria 1+ H Urine Casts 0-2
== END 2022-12-13 16:34 | disposition home or self-care (01) ==
PROVIDERS: Advanced Practice Midwife; Admitting Provider Obstetrics & Gynecology; PCP Internal Medicine Geriatric Medicine; Visit Provider Obstetrics & Gynecology
DX: O47.03 False labor before 37 completed weeks of gestation, third trimester (principal); O26.893 Other specified pregnancy related conditions, third trimester; R10.9 Unspecified abdominal pain; Z3A.34 34 weeks gestation of pregnancy
CPT/HCPCS: 81001; 87086; G0378; G0379

== ENCOUNTER 2023-01-02 21:06 | Observation (INO) | payer OTHER, SELFPAY ==
[2023-01-02 21:20] VITALS: BMI 29.1
--- NOTE | 2023-01-02 22:39 | OBADM ---
This patient, Dyan Do, admitted to the OB room Labor/Delivery/Recovery 105 for observation. Patient/family oriented to hospital policies and general routines including ID bracelet, bed and alarms, visiting hours, pain management, procedures, bathroom and other care routines, personal items, smoking policy, room service/diet, and visiting hours. Patient/Family are encouraged to report perceived risks to care and to ask questions if they do not understand what they are told or what they should do.
--- NOTE | 2023-01-16 07:58 | PM.OBTRLD ---
OB - Triage/Final Diagnosis Visit Information Comments/Additional reasons for admission: I have assessed the risk for this patient, Dyan Do, and determined that she would benefit from observation care. Final Diagnosis (1) False labor: Code(s): O47.9 - False labor, unspecified Status: Acute
== END 2023-01-02 22:40 | disposition home or self-care (01) ==
PROVIDERS: Admitting Provider Obstetrics & Gynecology; PCP Internal Medicine Geriatric Medicine; Visit Provider Obstetrics & Gynecology
DX: O47.1 False labor at or after 37 completed weeks of gestation (principal); Z3A.37 37 weeks gestation of pregnancy
CPT/HCPCS: G0378; G0379

== ENCOUNTER 2023-01-19 00:01 | Inpatient (IN) | payer OTHER, SELFPAY ==
[2023-01-19] VITALS (255 sets, daily range): BP systolic 87–151; BP diastolic 48–103; PULSE 44–179; RESP 18; TEMP 36.2–36.9; O2SAT 87–100; BMI 29.5
[2023-01-19 00:38] LABS: Basophils Percent Auto 0.3 % (0.2-1.2); Eosinophils Absolute Auto 0.1 K/mm3 (0-0.3); Eosinophils Percent Auto 0.6 % (0-4.4); Hematocrit 36.1 % (37.0-47.0); Hemoglobin 12.4 g/dL (12.0-15.0); Immature Granulocyte Absolute 0.05 K/mm3 (0.00-0.031); Immature Granulocyte Percent A 0.5 % (0-0.5); Lymphocytes Absolute Auto 2.82 K/mm3 (0.9-3.2); Lymphocytes Percent Auto 29.9 % (18.3-44.2); Mean Corpuscular HGB Conc 34.3 g/dl (32-36); Mean Corpuscular Hemoglobin 32.3 pg (26-34); Mean Platelet Volume 10.5 fl (7.4-10.4); Monocytes Absolute Auto 0.6 K/mm3 (0.1-0.6); Monocytes Percent Auto 6.3 % (2.6-8.5); Neutrophils Absolute Auto 5.9 K/mm3 (1.3-6.7); Neutrophils Percent Auto 62.4 % (45.5-73.1); Platelet Count Result 233 k/mm3 (150-375); Red Blood Count 3.84 M/mm3 (4.2-5.4); Red Cell Distribution Width 13.4 % (11.5-14.5); White Blood Count 9.4 K/mm3 (4.5-10.0)
--- NOTE | 2023-01-19 00:38 | LDADM ---
This patient, Dyan Do, was admitted to Labor/Delivery/Recovery 105 on 01/19/23 at 00:01. Plans for labor, pain management and were discussed with patient. Patient/family oriented to hospital policies and general routines including ID bracelet, bed and alarms, visiting hours, pain management, procedures, bathroom and other care routines, personal items, smoking policy, room service/diet and guest tray routines, security routines, and visiting hours. Patient/Family are encouraged to report perceived risks to care and to ask questions if they do not understand what they are told or what they should do. See OBIX for further documentation.
[2023-01-19] MEDS: miSOPROStol 25 MCG TABLET BY MOUTH (01:05)
[2023-01-19] MEDS: miSOPROStol 25 MCG TABLET PO (05:29)
[2023-01-19] MEDS: fentaNYL CITRATE INJ (*CRX) 100 MCG/2 ML VIAL 50 MCG IV PUSH ×2 (06:39→08:04)
--- NOTE | 2023-01-19 07:19 | WPDOBADMIT ---
Obstetrics - Admit Note Admission Note: record reviewed. No pertinent additions to the history and/or any subsequent changes in the physical findings that are not consistent with the expected course of the were found. elective IOL, SVE /, AROM clear, odorless fluid, anticipate vaginal delivery Additions to the history and/or subsequent changes in the physical findings follow. None.
[2023-01-19] MEDS: LACTATED RINGERS 1,000 ML 125 ML IV CONT ×3 (07:30→15:00)
[2023-01-19 09:59] LABS: Amphetamine Screen Urine Negative (Negative); Barbiturate Screen Urine Negative (Negative); Benzodiazepines Screen Urine Negative (Negative); Cannabinoid Screen Urine Positive (Negative); Cocaine Screen Urine Negative (Negative); Methadone Screen Urine Negative (Negative); Opiate Screen Urine Negative (Negative); Phencyclidine Screen Urine Negative (Negative)
[2023-01-19] MEDS: OXYTOCIN 30 UNITS/NS 500 ML 30 UNITS/500 ML BAG 6 UNITS IV CONT (11:00)
--- NOTE | 2023-01-19 15:20 | WPDANESEPPF ---
Anes - Initial Pre Proc Eval Procedure: labor epidural Date/Time: 01/19/23 15:20 Surgeon: Javier Resendez MD Pre Op Diagnosis: labor pain Pre Op Diagnosis: IOL Patient Data Age: 27 Gender: F Height: 1.71 m Weight: 87 kg Last Vital Signs Temp 36.4 C 01/19/23 13:00 Pulse 72 01/19/23 15:01 Resp 18 01/19/23 05:00 BP 116/80 01/19/23 15:01 Pulse Ox 98 01/19/23 15:19 O2 Del Method Room Air 01/19/23 00:20 Allergies Allergy/AdvReac Type Severity Reaction Status Date / Time medroxyprogesterone Allergy Rash Verified 09/28/22 19:21 [From Provera] Sulfa (Sulfonamide Allergy Rash Verified 09/28/22 19:21 Antibiotics) Home Medications Medication Instructions Recorded Confirmed Type calcium carbonate 300 mg (750 mg) 300 mg PO QID PRN Heartburn 12/13/22 01/19/23 History chewable tablet (Tums) vit no.95-ferrous 1 tablet PO DAILY 12/13/22 01/19/23 History fumarate 28 mg-folic acid 800 mcg tablet () cyclobenzaprine 5 mg tablet 5 mg PO HS 12/22/22 12/22/22 History Laboratory Tests 01/19/23 01/19/23 01/19/23 00:26 00:26 00:26 WBC 9.4 K/mm3 K/mm3 (4.5-10.0) RBC 3.84 M/mm3 L M/mm3 (4.2-5.4) Hgb 12.4 g/dL g/dL (12.0-15.0) Hct 36.1 % L % (37.0-47.0) MCV 94.0 fl fl (80-100) MCH 32.3 pg pg (26-34) MCHC 34.3 g/dl g/dl (32-36) RDW 13.4 % % (11.5-14.5) Plt Count 233 k/mm3 k/mm3 (150-375) MPV 10.5 fl H fl (7.4-10.4) Immature Gran % (Auto) 0.5 % % (0-0.5) Neut % (Auto) 62.4 % % (45.5-73.1) Lymph % (Auto) 29.9 % % (18.3-44.2) [place] % (Auto) 6.3 % % (2.6-8.5) Eos % (Auto) 0.6 % % (0-4.4) Baso % (Auto) 0.3 % % (0.2-1.2) Lymph # (Auto) 2.82 K/mm3 K/mm3 (0.9-3.2) [place] # (Auto) 0.6 K/mm3 K/mm3 (0.1-0.6) Eos # (Auto) 0.1 K/mm3 K/mm3 (0-0.3) Baso # (Auto) 0.0 K/mm3 K/mm3 (0.0-0.1) Abs Immat Gran (auto) 0.05 K/mm3 H K/mm3 (0.00-0.031) Absolute Neuts (auto) 5.9 K/mm3 K/mm3 (1.3-6.7) Absolute Nucleated RBC 0.0 K/mm3 K/mm3 (0.0-0.012) Nucleated RBC % 0.0 % % (0.0-0.2) Urine Opiates Screen Urine Methadone Screen Ur Barbiturates Screen Ur Phencyclidine Scrn Ur Amphetamine Screen U Benzodiazepines Scrn Urine Cocaine Screen U Cannabinoids Screen RPR Pending Blood Type O Positive Antibody Screen Negative 01/19/23 08:10 WBC RBC Hgb Hct MCV MCH MCHC RDW Plt Count MPV Immature Gran % (Auto) Neut % (Auto) Lymph % (Auto) [place] % (Auto) Eos % (Auto) Baso % (Auto) Lymph # (Auto) [place] # (Auto) Eos # (Auto) Baso # (Auto) Abs Immat Gran (auto) Absolute Neuts (auto) Absolute Nucleated RBC Nucleated RBC % Urine Opiates Screen Negative (Negative) Urine Methadone Screen Negative (Negative) Ur Barbiturates Screen Negative (Negative) Ur Phencyclidine Scrn Negative (Negative) Ur Amphetamine Screen Negative (Negative) U Benzodiazepines Scrn Negative (Negative) Urine Cocaine Screen Negative (Negative) U Cannabinoids Screen Positive A (Negative) RPR Blood Type Antibody Screen Patient hx anesthesia problems: none Family hx anesthesia problems: none Results Review: All pre-operative results and documents have been reviewed as part of the pre-operative evaluation. PMFSH Past Medical History Medical History Healthy female Family History Family History (Updated 12/22/22 @ 13:38 by Marla Arzola
[2023-01-19] MEDS: ONDANSETRON INJ 4 MG/2 ML VIAL IV PUSH (19:12)
--- NOTE | 2023-01-19 21:56 | P.PCNOB_ITS ---
OB - Delivery Note Procedure Delivery date: 01/19/23 Procedure: Induction method: Per Misoprostol Protocol Delivery augmentation: Rupture of Membranes Delivery monitor: External FHT and Internal Uterine Route of delivery: Laceration Description: None Specimen: No Quantitative Blood Loss (ml): 322 Anesthesia type: Epidural Disposition: Floor Narrative: mom and baby stable and doing skin to skin [place] Baby Date of : 01/19/23 Time of : 21:35 Weeks of gestation at delivery: 39 Infant gender: Female presentation: vertex position: Left Occiput Anterior Placenta delivery description: Manual Removal Cord Vessel Description: 3 Vessels, Clamped/Cut and Delayed Cord Clamping score one minute: 8 score five minutes: 9
[2023-01-19] MEDS: OXYTOCIN 30 UNITS/NS 500 ML 30 UNITS/500 ML BAG 125 UNITS IV CONT (22:13)
[2023-01-19] MEDS: IBUPROFEN 600 MG TABLET PO (22:15)
[2023-01-19] MEDS: ACETAMINOPHEN 325 MG TABLET 650 MG PO (22:15)
--- NOTE | 2023-01-20 01:10 | OBPPTRN ---
Patient transferred to post room #282 via wheelchair. Support person present. Oriented to unit, room, information board, rooming in, admission packet and security measures. Patient verbalizes understanding.
[2023-01-20 01:34] VITALS: BP 100/61; PULSE 76; RESP 14; TEMP 36.4; O2SAT 96
[2023-01-20 03:45] LABS: Hemoglobin 10.5 g/dL (12.0-15.0)
[2023-01-20 04:59] VITALS: BP 98/57; PULSE 69; RESP 16; TEMP 36.6; O2SAT 98
[2023-01-20] MEDS: IBUPROFEN 600 MG TABLET PO ×2 (06:59→13:31)
[2023-01-20 07:00] VITALS: BP 98/61; PULSE 70; RESP 16; TEMP 36.4; O2SAT 100
[2023-01-20] MEDS: DOCUSATE SODIUM 100 MG CAPSULE PO ×2 (07:00→16:26)
--- NOTE | 2023-01-20 07:00 | PC.NURSE ---
RN spoke with patient this morning regarding using the breast pump and per patient she would like to only bottle feed formula and not use the breast pump.
--- NOTE | 2023-01-20 07:30 | PC.NURSE ---
Stem Cell Blood Collection Kit that patient provided was returned to the patient. Her , Diana, called the plant maintenance mechanic of the company and arranged for picker of the kit today in the next 3-4 hours.
--- NOTE | 2023-01-20 07:53 | PM.OBPNVD ---
OB - PN: Subj Subjective Date/time seen: 01/20/23 07:53 Patient comments: no complaints and pain well controlled baby status: bottle feeding well [place] feeding status: exclusively bottle feeding OB - PN: Obj Data Labs 01/20/23 03:41 Labs: Laboratory Results - last 24 hr 01/19/23 01/20/23 08:10 03:41 Hgb 10.5 L Hct 31.0 L Urine Opiates Screen Negative Urine Methadone Screen Negative Ur Barbiturates Screen Negative Ur Phencyclidine Scrn Negative Ur Amphetamine Screen Negative U Benzodiazepines Scrn Negative Urine Cocaine Screen Negative U Cannabinoids Screen Positive A OB - PN A/P Assessment and Plan (1) , delivered: Code(s): O80 - Encounter for full-term uncomplicated delivery Status: Acute Plan day: 1 Plan: routine care Comments: home tomorrow Time Spent With Patient Time: Total time spent is greater than 50% in coordination of care (as documented) at patient's floor/unit and/or counseling patient: Time with patient: less than 15 minutes Exam Narrative: NAD abdomen soft, nontender, fundus firm below the umbilicus Extremities nontender, 1+ edema
[2023-01-20] MEDS: ACETAMINOPHEN 325 MG TABLET 650 MG PO ×2 (10:00→16:26)
--- NOTE | 2023-01-20 10:32 | WPDANLDPN2 ---
Anes-Prog Note L&D Date/Time: 01/20/23 10:32 Comfortable throughout: labor and delivery Neuraxial method: epidural Epidural/Spinal procedure site: clean & non-tender Neuro status: Neuro function grossly intact. Cardiovascular status: normal Respiratory status: normal Airway patency: baseline Mental status: baseline Post-Op hydration status: normal Vital Signs: Last Vital Signs Temp 36.6 C 01/20/23 04:59 Pulse 69 01/20/23 04:59 Resp 16 01/20/23 04:59 BP 98/57 L 01/20/23 04:59 Pulse Ox 98 01/20/23 04:59 O2 Del Method Room Air 01/19/23 00:20 Pain score (VAS): 3 I/O: Intake & Output 01/19/23 01/20/23 01/20/23 23:59 07:59 15:59 Output Total 322 Balance -322 Post-procedural complaints: none Patient feedback: Patient satisfied with anesthetic care.
[2023-01-20 13:10] VITALS: BP 116/79; PULSE 78; RESP 16; TEMP 36.1; O2SAT 100
[2023-01-20] MEDS: WITCH HAZEL 40 PADS 1 PAD TOPICAL (16:26)
[2023-01-20 20:08] VITALS: BP 100/59; PULSE 82; RESP 16; TEMP 36.8; O2SAT 99
[2023-01-21] MEDS: DOCUSATE SODIUM 100 MG CAPSULE PO (07:20)
[2023-01-21] MEDS: IBUPROFEN 600 MG TABLET PO (07:20)
[2023-01-21 08:20] VITALS: BP 97/64; PULSE 64; RESP 16; TEMP 36.6; O2SAT 100
[2023-01-21] MEDS: ACETAMINOPHEN 325 MG TABLET 650 MG PO (11:19)
--- NOTE | 2023-01-21 11:19 | PC.NURSE ---
Patient viewed the discharge video Mother & Baby Care, The First Two Weeks . Patient was given the opportunity and encouraged to ask questions. Patient verbalized understanding of information shared and has been given the mother/baby guide for home reference.
--- NOTE | 2023-01-21 12:43 | P.PNOB_ITS ---
OB - PN: Subj Subjective Date/time seen: 01/21/23 12:43 Patient comments: no complaints and pain well controlled baby status: doing well [place] feeding status: exclusively bottle feeding OB - PN: Obj Data Labs 01/20/23 03:41 OB - PN A/P Plan day: 2 Plan: routine care and discharge home Time Spent With Patient Time: Total time spent is greater than 50% in coordination of care (as documented) at patient's floor/unit and/or counseling patient: Time with patient: less than 15 minutes Exam Narrative: NAD abdomen soft, nontender, fundus firm below the umbilicus Extremities nontender, 1+ edema
--- NOTE | 2023-01-21 12:46 | P.DS_ITS ---
DS: Admitting Diagnosis Discharge Date 01/21/23 Admitting Diagnosis term IUP, induction of labor DS: Discharge Diagnosis Discharge Diagnosis (1) , delivered: Code(s): O80 - Encounter for full-term uncomplicated delivery Status: Acute OB - DS: Summary Hospital Course Hospital Course: Dyan was admitted for elective IOL at term. She proceeded to have an uncomplicated vaginal delivery and course. She was discharged home on PPD 2. OB Procedures : NST and Ultrasound OB Procedures Intrapartum: Spontaneous Vag Delivery OB Procedures: : None Peripartum Data Infant Delivery Method: Natural Vaginal Laceration Description: Vaginal - 2nd Degree complications: none Status at Discharge Functional status at discharge: independent ambulation Time Spent with Patient Time attestation: Total time spent providing and/or coordinating discharge services: Exam Narrative: NAD abdomen soft, appropriately tender Ext non tender, 1+ edema Discharge Plan Discharge Attending physician on discharge: Teresita Larkin Consulting providers: Bethanie Ulloa Discharging Clinician: Teresita Larkin Anticipated Discharge Date/Time: 01/21/23 12:45 Patient Disposition: Home, Self-Care Activity: pelvic rest Diet: regular Patient Instructions: Antibiotic Form Stand Alone Forms: General Discharge Information Follow-up/Referrals: Bethanie Ulloa, CNM [Certified Nurse Radio Time Salesperson] - 4 Weeks Discharge Medications: Continued PNV cmb#[id number]-ferrous fumarate-FA [] 28 mg iron- 800 mcg Tablet 1 tablet PO DAILY Discontinued cyclobenzaprine 5 mg Tablet 5 mg PO HS calcium carbonate [Tums] 300 mg (750 mg) Tablet,Chewable 300 mg PO QID PRN (Reason: Heartburn) Date of admission: 01/19/23 00:01 Primary Care Provider: Aniya,Yarelis Admitting Provider: Javier Resendez Attending physician on admission: Javier Resendez Condition: Stable
[2023-01-22 09:33] VITALS: BP 132/86; PULSE 84; RESP 18; TEMP 37.6; O2SAT 97
[2023-01-22 10:33] LABS: Rapid Plasma Reagin Non-Reactive (NonReactive)
== END 2023-01-21 13:40 | disposition home or self-care (01) | DRG 807 ==
LOC: ANHOB2 01-21 13:00 → ANHLDR 01-22 10:51 → ANHOB2 01-22 10:51
PROVIDERS: Advanced Practice Midwife; Admitting Provider Obstetrics & Gynecology; PCP Internal Medicine Geriatric Medicine; Visit Provider Obstetrics & Gynecology
DX: O80 Encounter for full-term uncomplicated delivery (principal); Z37.0 Single live birth; Z3A.39 39 weeks gestation of pregnancy
CPT/HCPCS: 36415; 80307; 84112; 85014; 85018; 85025; 86592; 86850; 86900; 86901; A9270; J2405; J2590; J2795; J3010; J7120

== ENCOUNTER 2023-02-14 15:53 | Emergency (ER) | payer OTHER, SELFPAY ==
[2023-02-14] VITALS (8 sets, daily range): BP systolic 102–114; BP diastolic 66–73; PULSE 50–78; RESP 11–23; TEMP 36.8; O2SAT 98
--- NOTE | ~2023-02-14 | CT_ITS ---
EXAMINATION: CT brain wo con DATE: 02/14/2023 16:43 INDICATION: Right-sided headache. TECHNIQUE: Computed tomography (CT) of the head was performed without intravenous contrast. The mA wa s adjusted according to patient size. Iterative reconstruction technique was employed. The dose-lengt h product was 605.33 mGy-cm. COMPARISON: None FINDINGS: There are areas of low attenuation in the deep white matter in the right frontal and pariet al lobes and left frontoparietal region. There is no intracranial hemorrhage, acute infarction, or ab normal intracranial mass lesion. The ventricles are normal in size. There is mild mucosal thickening in the ethmoid sinuses. The mastoid air cells are normal. The orbits are normal. IMPRESSION: 1. Mild nonspecific cerebral white matter disease. The differential diagnosis includes premature gelatin powder mixer moises small vessel ischemic disease (especially if the patient has cardiovascular risk factors), demyel inating disease such as multiple sclerosis, drug abuse, vasculitis, or reactive astrocytosis (gliosis ) secondary to nonspecific etiology. Reviewed, dictated and finalized at location A. IMPRESSION: 1. Mild nonspecific cerebral white matter disease. The differential diagnosis i ncludes premature chronic small vessel ischemic disease (especially if the onofre ent has cardiovascular risk factors), demyelinating disease such as multiple sc lerosis, drug abuse, vasculitis, or reactive astrocytosis (gliosis) secondary t o nonspecific etiology.
--- NOTE | 2023-02-14 16:40 | ED.GENADULT ---
HPI - General Adult General Chief complaint: Headache Stated complaint: RIGHT SIDED HEADACHE Time Seen by Provider: 02/14/23 15:57 Source: patient Mode of arrival: ambulatory Limitations: no limitations History of Present Illness HPI narrative: This is a 27-year-old female who presents to the ED with chief complaint of a right-sided headache x4 days. States she has no history of headaches or migraines in the past. States the pain is located on the right side of the head and radiates in the right jaw. She reports that she may have some swollen lymph nodes on the right and left. He feels that the headache may be little positional in nature and is worse when she sits or stands up. Her family members are concerned for potential complication of an epidural that she received when delivering 4 weeks ago. Otherwise she has no pertinent past medical history. Denies sore throat, cough or recent cold symptoms. Denies any neurologic symptoms. She has tried Fioricet, Tylenol, ibuprofen with little relief. Related Data Home Medications Medication Instructions Recorded Confirmed vit no.95-ferrous 1 tablet PO DAILY 12/13/22 01/19/23 fumarate 28 mg-folic acid 800 mcg tablet () osarqutexl-fvvhgkxgoiwtm-woviarjl tablet 02/14/23 02/14/23 50 mg-325 mg-40 mg tablet Allergies Allergy/AdvReac Type Severity Reaction Status Date / Time medroxyprogesterone Allergy Rash Verified 02/14/23 17:16 [From Provera] Sulfa (Sulfonamide Allergy Rash Verified 02/14/23 17:16 Antibiotics) Review of Systems Review of Systems: CONSTITUTIONAL: Denies fever, chills, or sweats. EYES: Denies visual changes, redness, or discharge. ENT: Denies rhinorrhea, congestion, sore throat, or otalgia. CARDIOVASCULAR: Denies chest pain, palpitations, or edema. RESPIRATORY: Denies cough or dyspnea. GASTROINTESTINAL: Denies abdominal pain, nausea, vomiting, or diarrhea. GENITOURINARY: Denies dysuria or hematuria. SKIN: Denies rash or itching. MUSCULOSKELETAL: Denies back pain, joint pain, or myalgia. NEUROLOGIC: See HPI PSYCHIATRIC: Denies anxiety or depression. [facility], [facility] Past Medical History Medical History Healthy female Family History Family History (Updated 12/22/22 @ 13:38 by Marla Heart RN) Sibling Down's syndrome Grandparent Diabetes mellitus Father Gout Social History Social History Social History: Denies alcohol or tobacco, uses marijuana occasionally Smoking status: Former smoker Tobacco type: cigarettes Alcohol intake: former Substance use: current Substance use type: marijuana Other substance usage details: helps with nausea and anxiety Last use: daily Lack of Transportation: No Lack of Food: Never True Current Housing: I Have Housing Concerned About Future Housing: No Difficulty Paying Gas/Electric Bills: No Difficulty Paying for Meds: No Currently Unemployed: No Education: High School Diploma/GED Difficulty w/ Childcare or Family Care: No Spiritual care concerns: No Exam Narrative: GENERAL: Well-appearing, well-nourished, and in no acute distress. HEAD: Normocephalic, atraumatic. EYES: PERRLA and EOMI. ENT: Nares clear, no rhinorrhea or epistaxis. Mucous membranes moist. Oropharynx without tonsillar hypertrophy exudate or other lesions. No mastoid redness or tenderness. NECK: Supple. No adenopathy or masses. CHEST: No respiratory distress. Clear to auscultation. No wheezes rales or rhonchi HEART: Regular rate and rhythm. No murmur heard. Normal peripheral pulses. ABDOMEN: Soft, nontender, nondistended, normal active bowel sounds. MSK: Normal range of motion. No edema. SKIN: Warm, dry, no rash. Tenderness present throughout the right scalp and right jaw. NEURO: Alert and oriented x3. No focal deficits. PSYCH: Normal mood and affect.
[2023-02-14] MEDS: SODIUM CHLORIDE 0.9% IV 1,000 ML 999 ML IV CONT (17:00)
[2023-02-14] MEDS: diphenhydrAMINE HCl INJ 50 MG/ML VIAL 25 MG IV PUSH (17:04)
[2023-02-14] MEDS: PROCHLORPERAZINE EDISYLATE 10 MG/2 ML VIAL IV PUSH (17:06)
[2023-02-14 17:07] LABS: Hematocrit 38.1 % (37.0-47.0); Hemoglobin 12.6 g/dL (12.0-15.0); Mean Corpuscular Hemoglobin 30.7 pg (26-34); Mean Corpuscular Volume 92.9 fl (80-100); White Blood Count 8.1 K/mm3 (4.5-10.0)
[2023-02-14 17:08] LABS: Basophils Percent Auto 0.5 % (0.2-1.2); Eosinophils Absolute Auto 0.2 K/mm3 (0-0.3); Eosinophils Percent Auto 2.2 % (0-4.4); Immature Granulocyte Absolute 0.02 K/mm3 (0.00-0.031); Immature Granulocyte Percent A 0.2 % (0-0.5); Lymphocytes Absolute Auto 3.21 K/mm3 (0.9-3.2); Lymphocytes Percent Auto 39.7 % (18.3-44.2); Mean Corpuscular HGB Conc 33.1 g/dl (32-36); Mean Platelet Volume 9.5 fl (7.4-10.4); Monocytes Absolute Auto 0.5 K/mm3 (0.1-0.6); Monocytes Percent Auto 6.4 % (2.6-8.5); Neutrophils Absolute Auto 4.1 K/mm3 (1.3-6.7); Platelet Count Result 375 k/mm3 (150-375)
[2023-02-14 17:23] LABS: Alanine Aminotransferase 32 U/L (6-35); Albumin Level 4.6 g/dL (3.5-5.1); Alkaline Phosphatase 112 U/L (38-126); Anion Gap 9 mmol/L (8-16); Aspartate Amino Transferase 32 U/L (14-36); Bilirubin,Total 0.6 mg/dL (0.2-1.3); Blood Urea Nitrogen 11 mg/dL (7-17); Calcium 9.4 mg/dL (8.4-10.2); Carbon Dioxide 27 mmol/L (22-30); Chloride 103 mmol/L (98-107); Estimated CRCL calculation 90 ml/min; Estimated Glomerular Filt Rate > 60; Glucose 92 mg/dL (65-110); Potassium 3.8 mmol/L (3.4-5.0); Sodium 139 mmol/L (137-145)
[2023-02-14] MEDS: KETOROLAC 15 MG/ML VIAL (*BKC) IV PUSH (17:24)
== END 2023-02-14 18:10 | disposition home or self-care (01) ==
PROVIDERS: Emergency Provider Physician Assistant; PCP Internal Medicine Geriatric Medicine
DX: G43.909 Migraine, unspecified, not intractable, without status migrainosus (principal); Z87.891 Personal history of nicotine dependence
CPT/HCPCS: 36415; 70450; 80053; 85025; 96361; 96365; 96375; 99284; J0131; J0780; J1200; J1885; J7030